=== PATIENT | female | born 1995 | race Caucasian/White ===

== ENCOUNTER 2016-07-25 20:35 | Emergency (ER) | payer OTHER ==
[~2016-07-25] VITALS: Ht 167.6 cm; Wt 68.9 kg
[2016-07-25] MEDS ORDERED: ONDANSETRON 4MG/2ML VIAL (J2405) IV ONE (21:30)
[2016-07-25] MEDS ORDERED: KETOROLAC 30 MG/ML VIAL (J1885) IV ONE (21:30)
[2016-07-25 21:36] LABS: BASO % 0.5 % (0.0-1.0); CONTROL LINE UCG INT CTR LINE PRESENT; EOS # 0.1 K/mm3 (0.0-0.50); EOS % 2.1 % (0.0-3.0); LARGE UNSTAINED CELL # 0.2 K/mm3 (0.0-0.4); LARGE UNSTAINED CELL % 3.1 % (0.0-4.0); LYMPH # 2.5 K/mm3 (1.5-6.5); MEAN CORPUSCULAR HEMOGLOBIN 30.7 pg (27.0-33.0); MEAN CORPUSCULAR HGB CONC 33.6 g/dl (32.0-36.5); MEAN CORPUSCULAR VOLUME 91.5 fl (80.0-96.0); MONO # 0.4 K/mm3 (0.0-0.8); MONO % 5.7 % (0.0-5.0); NEUTROPHILS # 3.2 K/mm3 (1.8-7.7); NEUTROPHILS % 49.6 % (36.0-66.0); PLATELET COUNT, AUTOMATED 286 k/mm3 (150-450); RED CELL DISTRIBUTION WIDTH 11.7 % (11.5-14.5); WHITE BLOOD COUNT 6.5 K/mm3 (4.0-10.0)
[2016-07-25 21:43] LABS: ANION GAP 6 MEQ/L (8-16); BLOOD UREA NITROGEN 20 MG/DL (7-18); CALCIUM LEVEL 9.2 MG/DL (8.5-10.1); CARBON DIOXIDE LEVEL 28 MEQ/L (21-32); CHLORIDE LEVEL 107 MEQ/L (98-107); CREATININE FOR GFR 0.96 MG/DL (0.55-1.02); GLUCOSE, FASTING 76 MG/DL (70-105); POTASSIUM SERUM 3.3 MEQ/L (3.5-5.1); SODIUM LEVEL 141 MEQ/L (136-145)
[2016-07-25] MEDS ORDERED: MORPHINE 4 MG/ML 1ML SYRINGE IV ONE (22:00)
--- NOTE | 2016-07-25 22:30 | REPUSA ---
CT of the abdomen and pelvis without contrast Clinical statement: Pain. Technique: Multiple axial CT images were obtained from the base of the lungs to the floor of the pelv is utilizing 5 mm axial slices without administration of contrast. Coronal and sagittal reconstructio ns were also obtained. Comparison: None. Findings: Chest: The visualized lung bases are clear. Abdomen: The kidneys are normal in size bilaterally. There is bilateral nephrolithiasis, with stones measuring up to 4 mm. There is mild right-sided hydronephrosis caused by a 1 mm stone at the right ur eterovesical junction. The liver, spleen, pancreas, gallbladder and adrenal glands are unremarkable. The aorta demonstrates normal caliber and contour. There is no abdominal lymphadenopathy or ascites. Pelvis: The bowel is unremarkable, with no obstructive or inflammatory changes. The appendix is only partially visualized, but appears unremarkable. The urinary bladder is within normal limits. There is no pelvic lymphadenopathy or ascites. The other pelvic structures appear unremarkable. Bones: There are no suspicious osseous abnormalities seen. Impression: 1. Mild right-sided hydronephrosis caused by a 1 mm stone at the right ureterovesical junction. Bilat eral nephrolithiasis. 2. No obstructive or inflammatory bowel changes.
[2016-07-25 22:45] VITALS: BP 126/71
[2016-07-25] MEDS ORDERED: IBUP600T26 PO (22:47)
[2016-07-25] MEDS ORDERED: ZOFR4TAB3 PO (22:47)
[2016-07-25] MEDS ORDERED: NORCO 5/325MG TABLET (BULK FOR ED) PO ONE (23:00)
== END 2016-07-25 22:58 | disposition home or self-care (01) ==
LOC: M ED 22:44
DX: N13.2 Hydronephrosis with renal and ureteral calculous obstruction (principal); Z87.442 Personal history of urinary calculi
CPT/HCPCS: 36415; 74176; 80048; 81001; 84703; 85025; 86140; 96374; 96375; 99284; J1885; J2405

== ENCOUNTER 2016-08-17 15:03 | Emergency (ER) | payer OTHER ==
[~2016-08-17] VITALS: Ht 165.1 cm; Wt 71.3 kg
[~2016-08-17 15:03] MED LIST: IBUP-1022 PO; ZOFR4TAB3 PO
[2016-08-17] MEDS ORDERED: KETOROLAC 30 MG/ML VIAL (J1885) IV ONE (15:30)
[2016-08-17] MEDS ORDERED: MORPHINE 4 MG/ML 1ML SYRINGE IV ONE (15:30)
[2016-08-17 15:52] LABS: BASO % 0.2 % (0.0-1.0); EOS # 0.1 K/mm3 (0.0-0.50); EOS % 1.1 % (0.0-3.0); LARGE UNSTAINED CELL # 0.1 K/mm3 (0.0-0.4); LARGE UNSTAINED CELL % 1.4 % (0.0-4.0); LYMPH # 1.5 K/mm3 (1.5-6.5); LYMPH % 17.5 % (24.0-44.0); MEAN CORPUSCULAR HEMOGLOBIN 30.9 pg (27.0-33.0); MEAN CORPUSCULAR HGB CONC 34.1 g/dl (32.0-36.5); MEAN CORPUSCULAR VOLUME 90.7 fl (80.0-96.0); MONO # 0.5 K/mm3 (0.0-0.8); MONO % 6.5 % (0.0-5.0); NEUTROPHILS # 5.7 K/mm3 (1.8-7.7); NEUTROPHILS % 73.4 % (36.0-66.0); PLATELET COUNT, AUTOMATED 250 k/mm3 (150-450); RED CELL DISTRIBUTION WIDTH 11.9 % (11.5-14.5); WHITE BLOOD COUNT 7.7 K/mm3 (4.0-10.0)
[2016-08-17 16:07] LABS: ANION GAP 6 MEQ/L (8-16); BLOOD UREA NITROGEN 7 MG/DL (7-18); CALCIUM LEVEL 9.1 MG/DL (8.5-10.1); CARBON DIOXIDE LEVEL 28 MEQ/L (21-32); CHLORIDE LEVEL 107 MEQ/L (98-107); CREATININE FOR GFR 0.81 MG/DL (0.55-1.02); GLUCOSE, FASTING 89 MG/DL (70-105); POTASSIUM SERUM 3.7 MEQ/L (3.5-5.1); SODIUM LEVEL 141 MEQ/L (136-145)
--- NOTE | 2016-08-17 16:12 | REP ---
Renal ultrasound: Comparison is the CT of the abdomen pelvis dated 07/25/2016. The kidneys are normal size. Right kidney measures 11.0 x 5 point and therefore 0 cm. Left kidney measures 10.5 x 5.5 x 5.5 cm. Renal cortical echogenicity is normal. There is no hydronephrosis on the right. There is mild hydronephrosis on the left. In addition there is a 5 x 5 mm calculus in the the left kidney. There are no masses or cysts on the right on the left. Impression: Left renal 5 mm calculus. Mild left hydronephrosis. Signed by Cb Georges MD 08/17/2016 04:04 P
[2016-08-17] MEDS ORDERED: NAPR500T PO (16:32)
[2016-08-17] MEDS ORDERED: FLOM5CAP PO (16:32)
[2016-08-17] MEDS ORDERED: ZOFR4TAB3 PO (16:32)
[2016-08-17] MEDS ORDERED: NORCOTAB PO (16:32)
[2016-08-17 16:41] VITALS: BP 126/68
== END 2016-08-17 16:44 | disposition home or self-care (01) ==
LOC: M ED 15:58
DX: N20.0 Calculus of kidney (principal); N13.30 Unspecified hydronephrosis; R11.0 Nausea; D24.1 Benign neoplasm of right breast
CPT/HCPCS: 76775; 80048; 81001; 81025; 85025; 86140; 87086; 96374; 96375; 99283; J1885

== ENCOUNTER 2016-08-19 01:26 | Emergency (ER) | payer OTHER ==
[~2016-08-19] VITALS: Ht 165.1 cm; Wt 68.0 kg
[~2016-08-19 01:26] MED LIST changes: +FLOM5CAP PO; +NAPR500T PO; +NORCOTAB PO
[2016-08-19 05:00] LABS: MICROSCOPIC INDICATED? MAN YES (NO)
[2016-08-19 05:17] LABS: HYALINE CAST, URINE NONE SEEN /lpf (0-1); MICROSCOPIC EXAM PERFORMED; SQUAMOUS EPITHELIAL CELL URINE MOD AMOUNT /hpf (SMALL AMT)
[2016-08-19 05:18] LABS: BACTERIA, URINE MOD AMOUNT
[2016-08-19] MEDS ORDERED: FLOM5CAP PO (06:13)
[2016-08-19 06:18] VITALS: BP 118/73
== END 2016-08-19 06:34 | disposition home or self-care (01) ==
LOC: M ED 02:31
DX: R35.0 Frequency of micturition (principal); R31.9 Hematuria, unspecified; Z87.442 Personal history of urinary calculi; L23.0 Allergic contact dermatitis due to metals

== ENCOUNTER 2016-08-21 15:10 | Emergency (ER) | payer OTHER ==
[~2016-08-21] VITALS: Ht 165.1 cm; Wt 72.8 kg
[2016-08-21] MEDS ORDERED: ONDANSETRON 4MG/2ML VIAL (J2405) IV ONE (16:00)
[2016-08-21] MEDS ORDERED: NS 1,000 ML IV ONE (16:00)
[2016-08-21] MEDS ORDERED: MORPHINE 4 MG/ML 1ML SYRINGE IV ONE (16:00)
[2016-08-21 16:19] LABS: BASO % 0.3 % (0.0-1.0); EOS # 0.2 K/mm3 (0.0-0.50); EOS % 2.3 % (0.0-3.0); LARGE UNSTAINED CELL # 0.1 K/mm3 (0.0-0.4); LARGE UNSTAINED CELL % 1.2 % (0.0-4.0); LYMPH # 1.6 K/mm3 (1.5-6.5); LYMPH % 19.7 % (24.0-44.0); MEAN CORPUSCULAR HEMOGLOBIN 30.2 pg (27.0-33.0); MEAN CORPUSCULAR HGB CONC 32.7 g/dl (32.0-36.5); MEAN CORPUSCULAR VOLUME 92.4 fl (80.0-96.0); MONO # 0.5 K/mm3 (0.0-0.8); NEUTROPHILS # 5.4 K/mm3 (1.8-7.7); NEUTROPHILS % 69.5 % (36.0-66.0); PLATELET COUNT, AUTOMATED 211 k/mm3 (150-450); RED CELL DISTRIBUTION WIDTH 12.2 % (11.5-14.5); WHITE BLOOD COUNT 7.8 K/mm3 (4.0-10.0)
--- NOTE | 2016-08-21 16:37 | REP ---
Clinical: Left flank pain. Comparison: 07/25/2016. Findings: Mild acute left-sided obstructive uropathy with hydroureteronephrosis caused by a 3 mm calculus in the distal left ureter (images 114 - 115). Right kidney demonstrates 1 mm nonobstructing calculus and the previously noted right-sided hydronephrosis has resolved. Liver, spleen, pancreas, gallbladder, and bilateral adrenal glands are normal. The enteric system is without obstruction or acute inflammatory process. Pelvis demonstrates normal bladder and age-appropriate uterus/adnexa. Trace pelvic fluid likely physiologic. No free air. No adenopathy. Abdominal aorta without aneurysm. Musculoskeletal structures are intact. Impression: Mild acute left-sided obstructive uropathy with a 3 mm calculus in the distal left ureter. 1 mm nonobstructing right renal calculus. Signed by Ramiro Valiente MD 08/21/2016 04:28 P
[2016-08-21 16:47] LABS: ALBUMIN 4.3 GM/DL (3.2-5.2); ALBUMIN/GLOBULIN RATIO 1.43 (1.00-1.93); ALKALINE PHOSPHATASE 70 U/L (45-117); ALT/SGPT 13 U/L (12-78); ANION GAP 3 MEQ/L (8-16); AST/SGOT 19 U/L (15-37); BILIRUBIN,DIRECT 0.4 MG/DL (0.0-0.2); BILIRUBIN,TOTAL 2.4 MG/DL (0.2-1.0); BLOOD UREA NITROGEN 17 MG/DL (7-18); CARBON DIOXIDE LEVEL 30 MEQ/L (21-32); CHLORIDE LEVEL 107 MEQ/L (98-107); GLUCOSE, FASTING 90 MG/DL (70-105); POTASSIUM SERUM 3.5 MEQ/L (3.5-5.1); SODIUM LEVEL 140 MEQ/L (136-145); TOTAL PROTEIN 7.3 GM/DL (6.4-8.2)
[2016-08-21] MEDS ORDERED: NORCO, ANEXSIA 5/325MG TABLET (HYDROcodone/ACETAMINOPHEN) PO ONE (17:00)
[2016-08-21] MEDS ORDERED: CIPROFLOXACIN 500 MG TAB PO ONE (17:00)
[2016-08-21] MEDS ORDERED: NORCOTAB PO (17:01)
[2016-08-21] MEDS ORDERED: CIPR-249 PO (17:01)
[2016-08-21] MEDS ORDERED: ZOFR4TAB3 PO (17:01)
[2016-08-21] MEDS ORDERED: FLOM5CAP PO (17:01)
[2016-08-21 17:12] VITALS: BP 119/66
== END 2016-08-21 17:15 | disposition home or self-care (01) ==
LOC: M ED 15:10
DX: N20.1 Calculus of ureter (principal); N39.0 Urinary tract infection, site not specified; Z86.018 Personal history of other benign neoplasm; Z79.899 Other long term (current) drug therapy; L23.0 Allergic contact dermatitis due to metals
CPT/HCPCS: 74176; 80048; 80076; 81001; 81025; 85025; 87086; 96374; 96375; 99284; J2405